=== PATIENT | male | born 1945 | race African-American/Black ===

== ENCOUNTER → 2022-03-17 | Day surgery (SDC) | payer MEDICARE, BC ==
[~2022-03-17] VITALS: Ht 182.9 cm; Wt 72.6 kg
[2022-03-17] VITALS (10 sets, daily range): BP systolic 148–154; BP diastolic 83–89
[~2022-03-17] MED LIST: CEFAZOLIN SODIUM 1000MG/VIAL ONE; DEXAMETHASONE 4MG/ML 1ML VIAL ONE; ETOMIDATE 2MG/ML 10ML VIAL IV ONE; EVER5TAB PO; FENTANYL CITRATE/PF 50MCG/ML 2ML VIAL IV NR; FENTANYL CITRATE/PF 50MCG/ML 2ML VIAL ONE; GLYCOPYRROLATE 0.2 MG/ML 2ML VIAL ONE; HYDR-4135 PO; HYDROMORPHONE HCL/PF 2MG/ML CPJ IV PRN; INDA1.255 PO; IOHEXOL-300 50 ML BOTTLE IV ONE; IOPAMIDOL 61% 300/15 ML VIAL IT ONE; LABETALOL 5MG/ML SYR 20 MG/4 ML SYRINGE IV PRN; LACTATED RINGERS 1,000 ML IV SCH; LIDOCAINE HCL/PF 1% 10 MG/ML 5ML VIAL ONE; MEPERIDINE HCL/PF 25MG/ML CPJ IV PRN; MIDAZOLAM HCL 2 MG/2 ML VIAL ONE; NEOSTIGMINE METHYLSULFATE 1MG/ML 10 ML VIAL ONE; OLME1TAB27 PO; ONDANSETRON HCL 4MG/2ML INJ IV PRN; ONDANSETRON HCL 4MG/2ML INJ ONE; PROPOFOL 200MG/20ML VIAL IV ONE; ROCURONIUM BROMIDE 10MG/ML VIAL 5ML IV ONE; SUCCINYLCHOLINE CHLORIDE 200MG/10ML IV ONE; TADA5TAB PO
[2022-03-17 09:14] LABS: PARTIAL THROMBOPLASTIN TIME 24.3 sec (23.4-31.0); PROTHROMBIN TIME 11.1 sec (9.6-11.0)
== END | disposition home or self-care (01) ==
LOC: OR 05:44
PROVIDERS: ATTEND Urology
DX: N13.30 Unspecified hydronephrosis (principal); N19 Unspecified kidney failure; N35.919 Unspecified urethral stricture, male, unspecified site; I10 Essential (primary) hypertension; Z79.899 Other long term (current) drug therapy; Z98.890 Other specified postprocedural states; Z20.822 Contact with and (suspected) exposure to COVID-19; Z82.49 Family history of ischemic heart disease and other diseases of the circulatory system
CPT/HCPCS: 36415; 50432; 52281; 74018; 85610; 85730; 87426; 93005; C1729; C1769; C9803; J0330; J0690; J1100; J2250; J2405; J2704; J2710; J3010; J3490; Q9967; 76000; 99152; 99153; G0500

== ENCOUNTER → 2022-04-07 | Day surgery (SDC) | payer MEDICARE, BC ==
[2022-04-07] VITALS (11 sets, daily range): BP systolic 145–163; BP diastolic 85–100
[~2022-04-07] VITALS: Ht 180.3 cm; Wt 73.5 kg
[~2022-04-07] MED LIST changes: +CEFAZOLIN 1000MG PREMIX 50 ML IV NR; -CEFAZOLIN SODIUM 1000MG/VIAL ONE; -DEXAMETHASONE 4MG/ML 1ML VIAL ONE; -ETOMIDATE 2MG/ML 10ML VIAL IV ONE; -FENTANYL CITRATE/PF 50MCG/ML 2ML VIAL IV NR; +FENTANYL CITRATE/PF 50MCG/ML 2ML VIAL IV ONE; -GLYCOPYRROLATE 0.2 MG/ML 2ML VIAL ONE; -HYDROMORPHONE HCL/PF 2MG/ML CPJ IV PRN; -IOPAMIDOL 61% 300/15 ML VIAL IT ONE; -LABETALOL 5MG/ML SYR 20 MG/4 ML SYRINGE IV PRN; -LACTATED RINGERS 1,000 ML IV SCH; +LIDOCAINE HCL 1% 10 MG/ML 10ML VIAL ONE; -LIDOCAINE HCL/PF 1% 10 MG/ML 5ML VIAL ONE; -MEPERIDINE HCL/PF 25MG/ML CPJ IV PRN; -MIDAZOLAM HCL 2 MG/2 ML VIAL ONE; -NEOSTIGMINE METHYLSULFATE 1MG/ML 10 ML VIAL ONE; -OLME1TAB27 PO; -ONDANSETRON HCL 4MG/2ML INJ IV PRN; -ONDANSETRON HCL 4MG/2ML INJ ONE; -PROPOFOL 200MG/20ML VIAL IV ONE; -ROCURONIUM BROMIDE 10MG/ML VIAL 5ML IV ONE; -SUCCINYLCHOLINE CHLORIDE 200MG/10ML IV ONE
== END | disposition home or self-care (01) ==
LOC: RADANGIO 07:53
PROVIDERS: ATTEND Urology
DX: N13.1 Hydronephrosis with ureteral stricture, not elsewhere classified (principal); Z79.899 Other long term (current) drug therapy; Z98.890 Other specified postprocedural states; Z20.822 Contact with and (suspected) exposure to COVID-19
CPT/HCPCS: 50435; 87426; C1725; C1729; C1769; J0690; J3010; J3490; Q9967; 74425; 99152; 99153; G0500